=== PATIENT | male | born 2000 | race Caucasian/White ===

== ENCOUNTER 2020-10-26 16:14 | Emergency (ER) | payer OTHER | END 2020-10-26 18:50 | disposition home or self-care (01) | LOC: EDH 16:14 | DX: B33.8 Other specified viral diseases (principal); R06.00 Dyspnea, unspecified; Z20.822 Contact with and (suspected) exposure to COVID-19 | CPT/HCPCS: 71045; 87426; U0003 ==

== ENCOUNTER 2021-10-24 22:20 | Emergency (ER) | payer BC, OTHER ==
[~2021-10-24] VITALS: Ht 180.3 cm; Wt 177.8 kg
[2021-10-24 22:34] VITALS: BP 127/69
[2021-10-24 22:52] LABS: INFLUENZA TYPE A NEGATIVE FOR TYPE A (NEG); INFLUENZA TYPE B NEGATIVE FOR TYPE B (NEG)
== END 2021-10-24 23:20 | disposition home or self-care (01) ==
LOC: EDH 22:20
DX: B34.9 Viral infection, unspecified (principal); Z20.822 Contact with and (suspected) exposure to COVID-19; E66.01 Morbid (severe) obesity due to excess calories; Z68.43 Body mass index [BMI] 50.0-59.9, adult
CPT/HCPCS: 87635; 87804 ×2; 99283; C9803

== ENCOUNTER 2022-08-12 13:55 | Emergency (ER) | payer BC ==
[~2022-08-12] VITALS: Ht 185.4 cm; Wt 178.3 kg
[2022-08-12 13:59] VITALS: BP 165/95
[2022-08-12] MEDS ORDERED: CLIN-141 PO (14:11)
[2022-08-12] MEDS ORDERED: IBUP-2071 PO (14:11)
[2022-08-12] MEDS ORDERED: TETANUS/DIPHTHERIA TOXOID [ADULT] 0.5 ML VIAL IM ONE (14:30)
[2022-08-12] MEDS ORDERED: CLINDAMYCIN 150 MG CAP PO ONE (14:30)
[2022-08-12] MEDS ORDERED: IBUPROFEN 800 MG TAB PO ONE (14:30)
== END 2022-08-12 14:49 | disposition home or self-care (01) ==
LOC: EDH 13:55
DX: S90.861A Insect bite (nonvenomous), right foot, initial encounter (principal); L03.115 Cellulitis of right lower limb; E66.01 Morbid (severe) obesity due to excess calories; Z68.43 Body mass index [BMI] 50.0-59.9, adult; Z90.89 Acquired absence of other organs; W57.XXXA Bitten or stung by nonvenomous insect and other nonvenomous arthropods, initial encounter; Y93.89 Activity, other specified; Y92.89 Other specified places as the place of occurrence of the external cause; Y99.8 Other external cause status
CPT/HCPCS: 82948; 90471; 90714

== ENCOUNTER 2023-05-22 20:17 | Emergency (ER) | payer BC ==
[~2023-05-22] VITALS: Ht 180.3 cm; Wt 179.6 kg
[~2023-05-22 20:17] MED LIST: CLIN-141 PO; IBUP-2071 PO
[2023-05-22 22:33] LABS: BASOPHILS # (AUTO) 0.07 K/uL (0.00-0.20); BASOPHILS % (AUTO) 0.4 % (0.0-5.0); EOSINOPHILS # (AUTO) 0.04 K/uL (0.00-0.70); EOSINOPHILS % (AUTO) 0.2 % (0.0-8.0); IMMATURE GRANULOCYTE ABSOLUTE 0.12 K/uL (0-1); LYMPHOCYTES % (AUTO) 12.4 % (21.0-51.0); MEAN CORPUSCULAR HEMOGLOBIN 29.2 pg (27.0-33.0); MEAN CORPUSCULAR HGB CONC 34.1 g/dL (32.0-36.0); MEAN CORPUSCULAR VOLUME 85.7 fL (79-99); MONOCYTES # (AUTO) 1.3 K/uL (0.1-1.0); MONOCYTES % (AUTO) 8.2 % (3.0-13.0); NEUTROPHILS # (AUTO) 12.7 K/uL (1.8-7.7); NEUTROPHILS % (AUTO) 78.1 % (40.0-77.0); PLATELET COUNT (AUTO) 299 K/uL (130-400); RED BLOOD CELL COUNT(AUTO) 5.37 MIL/uL (4.50-6.20); RED CELL DISTRIBUTION WIDTH 12.8 % (11.0-15.5); WHITE BLOOD COUNT (AUTO) 16.3 K/uL (4.8-10.8)
[2023-05-22 22:53] VITALS: BP 137/85; PULSE 108; RESP 20; O2SAT 98
[2023-05-22 22:57] LABS: ALBUMIN 3.3 g/dL (3.5-5.0); BILIRUBIN,TOTAL 0.7 mg/dL (0.2-1.0); CREATININE 1.1 mg/dL (0.5-1.5); POTASSIUM 4.3 mmol/L (3.5-5.1); TOTAL PROTEIN, SERUM 7.5 g/dL (6.0-8.3)
[2023-05-22] MEDS ORDERED: DOXY-252 PO (23:15)
[2023-05-22] MEDS ORDERED: IBUP-1493 PO (23:18)
[2023-05-22] MEDS ORDERED: CEFTRIAXONE 500MG VIAL IM SCH (23:30)
[2023-05-22] MEDS ORDERED: AZITHROMYCIN 250 MG TABLET PO ONE (23:30)
[2023-05-22] MEDS ORDERED: CEFTRIAXONE 1G VIAL IVPB ONE (23:30)
[2023-05-22] MEDS ORDERED: 0.9%NACL 1000ML 2,500 ML IV ONE (23:30)
== END 2023-05-23 00:52 | disposition home or self-care (01) ==
LOC: EDH 20:17
DX: N45.3 Epididymo-orchitis (principal); E66.01 Morbid (severe) obesity due to excess calories; Z68.43 Body mass index [BMI] 50.0-59.9, adult
CPT/HCPCS: 99284; 96374; 80053; 85025; 87040 ×2; 36415; 76870; J7030; J0696 ×2